=== PATIENT | female | born 1990 | race Caucasian/White ===

== ENCOUNTER 2024-12-15 15:24 | Emergency (ER) | payer SELFPAY ==
[2024-12-15 15:37] VITALS: BP 106/65
[2024-12-15 16:11] LABS: Urine Albumin 1+ (Neg - Trace); Urine Bilirubin Negative (Negative); Urine Glucose Negative (Negative); Urine Ketone Negative (Negative); Urine Leukocyte 2+ (Negative); Urine Nitrite Negative (Negative); Urine Occult Blood Negative (Negative); Urine Specific Gravity 1.015 (<1.030); Urine Urobilinogen Negative (Neg - 1+)
[2024-12-15 16:19] LABS: % Basophils 0.5 % (0-2); % Eosinophils 3.4 % (0-6); % Immature Granulocytes 0.3 % (0-0.5); % Lymphocytes 30.9 % (20.5-51.1); % Neutrophils 59.9 % (42.2-75.2); Absolute Eosinophils 0.3 10^3/uL (0-0.7); Absolute Lymphocytes 2.7 10^3/uL (1.2-3.4); Absolute Monocytes 0.4 10^3/uL (0.1-0.6); Absolute Neutrophils 5.2 10^3/uL (1.4-6.5); Hematocrit 36.1 % (37.0-47.0); Hemoglobin 12.1 g/dL (12.0-16.0); Mean Corp Hgb Conc. 33.5 g/dL (33.0-37.0); Mean Corpuscular Hgb 31.6 pg (27.0-31.0); Mean Corpuscular Volume 94.3 fL (81.0-99.0); Nucleated Red Blood Cells % 0 %; Platelet Count 332 10^3/uL (130-400); Red Blood Cell Count 3.83 10^6/uL (4.20-5.40); Red Cell Dist. Width 13.1 % (11.5-14.5); White Blood Cell Count 8.6 10^3/uL (4.8-10.8)
[2024-12-15 16:22] LABS: ALT (SGPT) 13 U/L (0-35); AST (SGOT) 19 U/L (14-36); Albumin 3.7 g/dl (3.5-5.0); Alkaline Phosphatase 61 U/L (38-126); Blood Urea Nitrogen 6 mg/dl (7-17); Calcium 9.5 mg/dl (8.4-10.2); Carbon Dioxide 24 mmol/L (22-30); Chloride 105 mmol/L (98-107); Glucose 70 mg/dl (70-99); Potassium 4.5 mmol/L (3.5-5.1); Sodium 135 mmol/L (135-145); Total Bilirubin 0.3 mg/dl (0.2-1.3); Total Protein 6.4 g/dl (6.3-8.2); Urine Character Clear (Clear); Urine Color Yellow; Urine Squamous Cell >30 /LPF (Few); eGFR > 60.00
[2024-12-15 16:23] LABS: Urine Bacteria Many (Negative); Urine Red Blood Cell 0-2 /HPF (0-2)
[2024-12-15 17:20] VITALS: BMI 26.3
--- NOTE | 2024-12-15 17:23 | EDRN ---
Pt states she is 5 months and not had any care due to insurance issues (medicaid). Pt has been attempting to get care since beginning of October. Pt is here for cramping that started yesterday am, is intermittent and does not go
away.
[2024-12-15 17:25] VITALS: BP 115/66
--- NOTE | 2024-12-15 18:12 | EDRN ---
Dr. Chen in room w/ pt.
--- NOTE | 2024-12-15 19:28 | ED.GENMED ---
History of Present Illness
General
Chief Complaint: Abdominal Symptoms
Time Seen by Provider: 12/15/24 17:19
History of Present Illness
History of Present Illness:
34-year-old female with history of asthma presenting to the emergency department for abdominal cramping. Patient reports last menstrual period was at the end of July or beginning of August. She notes that she does not have insurance, so has
had no care. She has been taking vitamins. She denies any vaginal bleeding. Cramping started yesterday. She is waiting for her Medicaid to set in. Denies chest pain, difficulty breathing, cough, fever. Denies any abnormal
leakage of fluids. She did have 2 pregnancies in the past, reported foods. Denies additional medical complaints
Past History
Past History
ED Past Medical History: Asthma and Other (Spontaneous pneumothorax)
ED Past Surgical History: Orthopedic
Social History
Tobacco: Smoker
Alcohol: Occasional
Drug: Marijuana
Living: with family
Phy Exam
Physical Exam
Physical Exam:
General: Well-appearing, no clinical signs of dehydration, nontoxic and in no acute distress
HEENT: protecting airway
Neck: appears supple
CV: Normal heart rate, regular rhythm, no evidence of cyanosis
Resp: No accessory muscle use, no increased work of breathing, lungs clear to auscultation bilaterally
Abd: No distention, no tenderness to palpation
Extremities: No deformities, no swelling
Neuro: alert, no focal neurologic deficit
: deferred
Rectal: deferred
Psych: Normal affect
Skin: Intact
Course
Orders/Labs/Results
Orders:
Orders
12/15/24 15:56
Beta HCG Quantitative Urgent
Is this a screen?: No
Complete Blood Count/With Diff Urgent
Comprehensive Metabolic Panel Urgent
Urinalysis Reflex To Culture Urgent
Date Specimen was Collected: 12/15/24
Time Specimen was Collected: 15:41
Urine Microscopic Reflex Cult Urgent
Urine Culture Urgent
GHANSHYAM Source: U
Specimen Description:
Date Specimen was Collected: 12/15/24
Time Specimen was Collected: 15:41
12/15/24 18:13
US Limited Urgent
Reason For Exam: cramping, no prior US or prenantal care
Abnormal Lab Results
12/15/24
15:56
RBC 3.83 L 10^6/uL
(4.20-5.40)
Hct 36.1 L %
(37.0-47.0)
MCH 31.6 H pg
(27.0-31.0)
BUN 6 L mg/dl
(7-17)
Creatinine 0.5 L mg/dL
(0.6-1.0)
Leukocyte Esterase Rfl 2+ A
(Negative)
Urine Bacteria (Reflex) Many A
(Negative)
Urine Albumin (Reflex) 1+ A
(Neg - Trace)
12/15/24 15:56
12/15/24 15:56
Vital Signs
Initial and Last Documented VS:
Initial Vital Signs
Temp Pulse Resp BP Pulse Ox
98.0 F 101 16 106/65 98
12/15/24 15:37 12/15/24 15:37 12/15/24 15:37 12/15/24 15:37 12/15/24 15:37
Last Documented Vital Signs
Temp Pulse Resp BP Pulse Ox
98.0 F 85 16 115/66 100
12/15/24 15:37 12/15/24 17:25 12/15/24 17:25 12/15/24 17:25 12/15/24 17:25
MDM/Problems Addressed
MDM/Problems Addressed:
34-year-old A2 presenting to the emergency department for abdominal cramping in . Vital signs are normal.
On exam patient is resting comfortably, no acute distress or discomfort. By dates, patient is about 4 to 5 months . Patient afebrile, nontoxic, stable vital signs. Abdominal exam is benign without focal reproducible tenderness. Suspect
normal abdominal cramping and second trimester . Patient had screening laboratory now prior to my assessment, unremarkable. Given absence of any care, will proceed with ultrasound imaging.
20:00 -patient's ultrasound shows live IUP at 22 weeks gestation normal heart rate. At this time, feel stable for discharge. Patient reports that she believes that her Medicare will be coming in the next few weeks. In the meantime we will
give information for the free clinic. Return precautions discussed and patient verbalized understanding
*Critical Care Note
Total Time (30-74mins, 75-104mins- exclusive of procedures): Not Applicable
ED Attending Note
-
Portions of this chart may have been created with voice recognition software.� Occasional wrong word or��sound alike� substitutions may have occurred due to the inherent limitations of voice recognition software.
Discharge Plan
Departure
Prescriptions:
No Action
albuterol sulfate 1 PUFF HFA aerosol inhaler
2 puff inhalation R QID
pantoprazole 40 MG tablet,delayed release (DR/EC)
40 mg PO BID Qty: 50 0RF
Rx Instructions:
Twice daily for 2 weeks than
Once daily
prednisone 10 MG tablet
10 mg PO .TAPER Qty: 30 0RF
Rx Instructions:
Take 40mg daily x3days, 30mg daily x3days,
20mg daily x3days, 10mg daily x3days.
diazepam [Valium] 5 MG tablet
5 mg PO Q8HPRN PRN (Reason: pain, spasm) Qty: 12 0RF
Referrals:
[facility] [Outside]
NONE,* [Family Provider] -
Interventions
Interventions:
*Risk Screen - Suicide Last Done: 12/15/24 15:37
*General Assessment Last Done: 12/15/24 17:21
*Neglect/Abuse Screening Last Done: 12/15/24 15:37
*ED- Fall Risk Assessment Last Done: 12/15/24 17:21
*ED COVID-19 Vaccine History Last Done: 12/15/24 17:21
VU-Zecahe-Ujeprafurm Assessment Last Done: 12/15/24 17:28
Discharge Date and Time
Print Language: PASHTO
--- NOTE | 2024-12-16 08:55 | CM ---
CM received consult from ER physician regarding care options. CM attempted to call patient, but phone was 'not accepting calls'. CM will remain available as needed.
== END 2024-12-15 20:32 | disposition home or self-care (01) ==
LOC: EMR 15:24
PROVIDERS: Emergency Medicine; EMERGENCY PHYSICIAN Student in an Organized Health Care Education/Training Program
DX: O26.892 Other specified pregnancy related conditions, second trimester (principal); R10.9 Unspecified abdominal pain; O09.32 Supervision of pregnancy with insufficient antenatal care, second trimester; O99.332 Smoking (tobacco) complicating pregnancy, second trimester; F17.200 Nicotine dependence, unspecified, uncomplicated; O99.512 Diseases of the respiratory system complicating pregnancy, second trimester; J45.909 Unspecified asthma, uncomplicated; Z59.71 Insufficient health insurance coverage; Z3A.22 22 weeks gestation of pregnancy
CPT/HCPCS: 99284; 76815; 80053; 81003; 81015; 84702; 85025; 87086